=== PATIENT | male | born 1950 | race Caucasian/White ===

== ENCOUNTER 2018-03-23 07:02 | Emergency (ER) | payer MEDICARE, BC ==
--- OUTSIDE RECORDS SUMMARY | 2018-03-23 07:16 | XMS REPORT ---
:1950 External Reference #:[id number] Author Organization [facility] 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 Unavailable Sade Storey MD Primary Care Physician Unavailable Payers Type Date Identification Numbers Payment Provider Subscriber Medicare Primary Policy Number: [id number] Medicare Dennis Maya PayID: [id number] [address] [place] [address] Medigap Part B Policy Number: [id number] Mimi Maya PayID: [id number] [address] [address] [place] [address] Medigap Part B Expires: 2011 Policy Number: Mimi Maya [id number] PayID: [id number] [place] [address] Problems Date Description Provider Status Onset: 08/03/2015 Benign essential hypertension Sade Storey MD Active Onset: 08/03/2015 Hyperlipidemia Sade Storey MD Active Onset: 08/03/2015 Benign prostatic hypertrophy without Sade Storey MD Active outflow obstruction Onset: 08/03/2015 Plantar fascial fibromatosis Sade Storey MD Active Onset: 08/03/2015 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 Onset: 08/03/2015 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 Active outflow obstruction Onset: 12/31/2017 Screening for malignant neoplasm of Vira Conteh M.D. Active prostate Onset: 09/23/2017 Allergic rhinitis Sade Storey MD Active Onset: 09/23/2017 Abnormal glucose level Sade Storey MD Active Onset: 11/22/2016 Cough Rajinder Bañuelos M.D. Active Onset: 11/22/2016 Dysphagia Rajinder Bañuelos M.D. 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 hours as needed for pain [facility] Fluticasone 09/23/ Active Suspension 50mcg/Act 29.7m 2 sprays [place] Proprionate 2018 l in in the , Nasal [place] morning Clint, in each M.D. nostril in the morning id# [id number] 50mcg (50 sprays per container ) #9 container s/ Gabapentin 10/11/ Active Capsules 300mg 270ca take 1 G62.9 Sarmad 2015 ps capsule 3 Andras, times a M.D. day Dutasteride 08/02/ Active Capsules 0.5mg 90cap 1 tab by Rupa Storey MD daily Omeprazole 08/02/ Active Capsules DR 40mg 90cap 1 by Rupa Storey MD every day Doxazosin 08/02/ Active Tablets 2mg 90tab 1 tab by Barrett Storey 2015 mp Stuart MD daily Nitrostat 08/02/ Active Tablets Sub 0.4mg 25tab 1 tab sl [place], 2015 s every 5 MD Sade min x3 chest pain Metrogel 08/02/ Active Gel 1% 60gm apply to [place], 2015 affected MD Sade every night at bedtime prn Losartan / Active Tablets 50mg 90tab 1 tab by [place] Potassium 0000 s mouth MD Sade every day Aspirin Ec Low / Active Tablets DR 81mg 1 by Unknown Dose 0000 mouth every day Simvastatin / Active Tablets 40mg 90tab 1 by [place], 0000 s mouth MD Sade every day Montelukast / Active Tablets 10mg 90tab 1 by Sarmad Sodium 0000 s mouth Andras, every day M.D. as needed Ketoconazole / Active Cream 2% apply Unknown 0000 twice a day as needed. Ciprofloxacin / Active Tablets 500mg 1 by Unknown HCL 0000 mouth twice a day Colace / Active Capsules 100mg 1 po bid Unknown 0000 Oxybutynin 02/21/ Hx Tablets ER 5mg 30tab 1 by Yady Chloride ER 2018 - 24HR s mouth Mahmoud, 02/24/ every day M.D. 2017 Ciprofloxacin 01/10/ Hx Tablets 500mg 1tabs 1 by Yady, HCL 2018 - mouth 1 x Mahmoud, 01/11/ dose M.D. 2018 Vitamin D3 08/02/ Hx Tablets 2000Unit 1 by [place] Super Strength 2015 - mouth MD Sade 10/10/ every day 2017 Multi-Day 08/02/ Hx Tablets 100ta 1 by [place] Vitamins 2015 - bs mouth MD Sade 09/23/ every day 2018 Gabapentin / Hx Capsules 300mg 84cap 1 by G62.9 [place], 0000 - s mouth Leydi, 11/15/ three M.D. 2016 times a day as needed Immunizations CPT Code Status Date Vaccine Lot # [id number] Given 02/24/2018 Influenza High Dose [id number] Given 02/21/2017 Influenza High Dose [id number] 41239 Given 04/06/2016 Pneumovax Injection [id number] Given 02/17/2016 Influenza Vaccine (Fluzone) Age 3 And Older [id number] 62217 Given 05/20/2014 Pneumococcal Conjugate Vaccine 13 Valent For Intramuscular Use 28761 Given 03/14/1998 Influenza Virus Vaccine Vital Signs Date Vital Result Comment 02/24/2018 BP Systolic 128 mmHg BP Diastolic 75 mmHg Body Temperature 98.2 F Heart Rate 87 /min Respiratory Rate 16 /min Height 67 inches 5'7" Weight 148.12 lb BMI (Body Mass Index) 23.2 kg/m2 BSA (Body Surface Area) 1.78 m2 [place] body weight in kilograms 67 O2 % BldC Oximetry 98 % Pain Level 0 02/21/2018 BP Systolic 113 mmHg BP Diastolic 69 mmHg Body Temperature 98.5 F Heart Rate 99 /min Respiratory Rate 15 /min O2 % BldC Oximetry 98 % Pain Level 10 Pain while urinating 01/10/2018 BP Systolic 142 mmHg BP Diastolic 84 mmHg Body Temperature 98.1 F Heart Rate 75 /min Respiratory Rate 18 /min Height 67 inches 5'7" Weight 150.00 lb BMI (Body Mass Index) 23.5 kg/m2 BSA (Body Surface Area) 1.79 m2 [place] body weight in kilograms 67 O2 % BldC Oximetry 99 % Pain Level 0 12/31/2017 BP Systolic 131 mmHg BP Diastolic 81 mmHg Body Temperature 98.2 F Heart Rate 72 /min Respiratory Rate 16 /min Height 67 inches 5'7" Weight 152.00 lb BMI (Body Mass Index) 23.8 kg/m2 BSA (Body Surface Area) 1.80 m2 [place] body weight in kilograms 67 O2 % BldC Oximetry 99 % Pain Level 0 09/23/2017 BP Systolic Sitting Left Arm 98 mmHg Yuliana 97/60 BP Diastolic Sitting Left Arm 67 mmHg Yuliana 97/60 Heart Rate 81 /min Respiratory Rate 12 /min Height 67 inches 5'7" Weight 157.00 lb BMI (Body Mass Index) 24.6 kg/m2 BSA (Body Surface Area) 1.82 m2 [place] body weight in kilograms 67 03/27/2017 BP Systolic 117 mmHg BP Diastolic 73 mmHg Heart Rate 71 /min Respiratory Rate 12 /min Height 67 inches 5'7" Weight 154.25 lb BMI (Body Mass Index) 24.2 kg/m2 BSA (Body Surface Area) 1.81 m2 [place] body weight in kilograms 67 O2 % BldC Oximetry 97 % 11/22/2016 BP Systolic Sitting Left Arm 128 mmHg BP Diastolic Sitting Left Arm 72 mmHg Body Temperature 98.0 F Heart Rate 76 /min Respiratory Rate 14 /min Height 67 inches 5'7" Weight 152.38 lb BMI (Body Mass Index) 23.9 kg/m2 BSA (Body Surface Area) 1.80 m2 [place] body weight in kilograms 67 O2 % BldC Oximetry 98 % 10/10/2016 BP Systolic 121 mmHg BP Diastolic 71 mmHg Heart Rate 70 /min Respiratory Rate 12 /min Height 67 inches 5'7" Weight 153.00 lb With Shoes BMI (Body Mass Index) 24.0 kg/m2 BSA (Body Surface Area) 1.80 m2 [place] body weight in kilograms 67 O2 % BldC Oximetry 98 % 04/06/2016 BP Systolic 118 mmHg BP Diastolic 74 mmHg Heart Rate 78 /min Height 67 inches 5'7" Weight 151.00 lb BMI (Body Mass Index) 23.6 kg/m2 BSA (Body Surface Area) 1.79 m2 11/02/2015 BP Systolic Sitting Right Arm 118 mmHg BP Diastolic Sitting Right Arm 64 mmHg Heart Rate 72 /min Height 67 inches 5'7" Weight 159.12 lb BMI (Body Mass Index) 24.9 kg/m2 BSA (Body Surface Area) 1.84 m2 10/12/2015 BP Systolic 122 mmHg BP Diastolic 66 mmHg Heart Rate 76 /min Respiratory Rate 18 /min Height 67 inches 5'7" Weight 158.00 lb BMI (Body Mass Index) 24.7 kg/m2 BSA (Body Surface Area) 1.83 m2 O2 % BldC Oximetry 98 % ra 09/07/2015 BP Systolic 132 mmHg BP Diastolic 72 mmHg Heart Rate 72 /min Respiratory Rate 18 /min Height 67 inches 5'7" Weight 154.00 lb BMI (Body Mass Index) 24.1 kg/m2 BSA (Body Surface Area) 1.81 m2 O2 % BldC Oximetry 97 % Ra 08/03/2015 BP Systolic 122 mmHg BP Diastolic 77 mmHg Heart Rate 89 /min Weight 153.00 lb Results Test Date Test Result H/L Range Note CBC W/Automated Diff 02/20/2018 White Blood Count 7.5 K/uL 3.4-10.5 1 Red Blood Count 3.99 M/uL Low 4.20-5.80 1 Hemoglobin 12.2 gm/dL Low 12.8-17.0 1 Hematocrit 34.9 % Low 38.0-48.0 1 Mean Cell Volume 87.5 fl 80.0-96.0 1 Mean Corpuscular HGB 30.6 pg 27.0-33.0 1 Mean Corpuscular HGB Conc 35.0 g/dL 31.7-36.0 1 Platelet Count 159 K/uL 155-360 1 Red Cell Distri Width SD 39.1 fl 36-51 1 Red Cell Distri Width %CV 12.8 % 11.6-15.8 1 Mean Platelet Volume 11.8 fL High 6.6-10.6 1 Neut% 75.2 % High 33.0-73.0 1 Lymph % 17.4 % Low 20.0-42.0 1 [place] % 6.6 % 0.0-10.0 1 Eo% 0.7 % 0.0-6.6 1 Bas% 0.1 % 0.0-1.1 1 Neut# 5.66 K/uL 1.8-7.0 1 Lymph # 1.31 K/uL 1.0-4.0 1 [place] # 0.50 K/uL 0.0-0.8 1 Eos # 0.05 K/uL 0.0-0.5 1 Baso # 0.01 K/uL 0.0-0.1 1 Basic Metabolic Panel 02/20/2018 Glucose 94 mg/dL 74-106 1 BUN 11 mg/dL 7-18 1 Creatinine 1.0 mg/dL 0.6-1.3 1 Glom Filtration Rate, Estimate >60 mL/min >60 1 If >60 mL/min >60 1, 2 BUN/Creat 11.0 ratio 1 Sodium 143 mmol/L 136-145 1 Potassium 4.1 mmol/L 3.5-5.1 1 Chloride 108 mmol/L High 98-107 1 Carbon Dioxide 30 mmol/L 21-32 1 Anion Gap 5 mEq/L Low 8-16 1 Calcium 8.1 mg/dL Low 8.5-10.1 1 Laboratory test finding 12/31/2017 Prostate Specific 3.93 ng/mL < 4.0 3 , 4 Antigen Comprehensive Metabolic 09/18/2017 Glucose 104 mg/dL 74-106 5 Panel BUN 13 mg/dL 7-18 5 Creatinine 1.0 mg/dL 0.6-1.3 5 Glom Filtration Rate, Estimate >60 mL/min >60 5 If >60 mL/min >60 5, 6 BUN/Creat 13.0 ratio 5 Sodium 144 mmol/L 136-145 5 Potassium 3.9 mmol/L 3.5-5.1 5 Chloride 111 mmol/L High 98-107 5 Carbon Dioxide 28 mmol/L 21-32 5 Anion Gap 5 mEq/L Low 8-16 5 Calcium 8.3 mg/dL Low 8.5-10.1 5 Total Protein 6.6 g/dL 6.4-8.2 5 Albumin 3.4 g/dL 3.4-5.0 5 Globulin 3.2 g/dL 1.9-4.3 5 Alb/Glob 1.1 ratio 5 Bilirubin,Total 0.4 mg/dL 0.2-1.0 5 Sgot/Ast 19 U/L 15-37 5 SGPT/Alt 35 U/L 12-78 5 Alkaline Phosphatase 90 U/L 45-117 5 LDL Cholesterol Profile 09/18/2017 Cholesterol 139 mg/dL <200 5, 7 Triglycerides 151 mg/dL High <150 5, 8 HDL Cholesterol 43 mg/dL >40 5, 9 LDL-Cholesterol 66 mg/dL < 100 5, 10 Glycohemoglobin A1c 09/18/2017 Glycohemoglobin (A1c) 6.2 % 4.2-6.3 5, 11 eAG 131 mg/dL 5 CBS W/Automated Diff 09/18/2017 White Blood Count 5.4 K/uL 3.4-10.5 5 Red Blood Count 5.00 M/uL 4.20-5.80 5 Hemoglobin 15.2 gm/dL 12.8-17.0 5 Hematocrit 43.5 % 38.0-48.0 5 Mean Cell Volume 87.0 fl 80.0-96.0 5 Mean Corpuscular HGB 30.4 pg 27.0-33.0 5 Mean Corpuscular HGB Conc 34.9 g/dL 31.7-36.0 5 Platelet Count 179 K/uL 155-360 5 Red Cell Distri Width SD 42.3 fl 36-51 5 Red Cell Distri Width %CV 13.8 % 11.6-15.8 5 Mean Platelet Volume 11.7 fL High 6.6-10.6 5 Neut% 57.6 % 33.0-73.0 5 Lymph % 31.5 % 20.0-42.0 5 [place] % 8.3 % 0.0-10.0 5 Eo% 2.0 % 0.0-6.6 5 Bas% 0.6 % 0.0-1.1 5 Neut# 3.12 K/uL 1.8-7.0 5 Lymph # 1.71 K/uL 1.0-4.0 5 [place] # 0.45 K/uL 0.0-0.8 5 Eos # 0.11 K/uL 0.0-0.5 5 Baso # 0.03 K/uL 0.0-0.1 5 Comprehensive Metabolic Panel 03/20/2017 Glucose 93 mg/dL 74-106 12 BUN 11 mg/dL 7-18 12 Creatinine 1.0 mg/dL 0.6-1.3 12 Glom Filtration Rate, Estimate >60 mL/min >60 12 If >60 mL/min >60 12, 13 BUN/Creat 11.0 ratio 12 Sodium 143 mmol/L 136-145 12 Potassium 4.3 mmol/L 3.5-5.1 12 Chloride 108 mmol/L High 98-107 12 Carbon Dioxide 30 mmol/L 21-32 12 Anion Gap 5 mEq/L Low 8-16 12 Calcium 8.8 mg/dL 8.5-10.1 12 Total Protein 7.0 g/dL 6.4-8.2 12 Albumin 3.7 g/dL 3.4-5.0 12 Globulin 3.3 g/dL 1.9-4.3 12 Alb/Glob 1.1 ratio 12 Bilirubin,Total 0.4 mg/dL 0.2-1.0 12 Sgot/Ast 21 U/L 15-37 12 SGPT/Alt 35 U/L 12-78 12 Alkaline Phosphatase 102 U/L 45-117 12 LDL Cholesterol Profile 03/20/2017 Cholesterol 170 mg/dL <200 12, 14 Triglycerides 167 mg/dL High <150 12, 15 HDL Cholesterol 44 mg/dL >40 12, 16 LDL-Cholesterol 93 mg/dL < 100 12, 17 Glycohemoglobin A1c 03/20/2017 Glycohemoglobin (A1c) 5.9 % 4.2-6.3 12, 18 eAG 123 mg/dL 12 CBS W/Automated Diff 11/22/2016 White Blood Count 5.8 K/uL 3.4-10.5 19 Red Blood Count 4.92 M/uL 4.20-5.80 19 Hemoglobin 14.9 gm/dL 12.8-17.0 19 Hematocrit 42.5 % 38.0-48.0 19 Mean Cell Volume 86.4 fl 80.0-96.0 19 Mean Corpuscular HGB 30.3 pg 27.0-33.0 19 Mean Corpuscular HGB Conc 35.1 g/dL 31.7-36.0 19 Platelet Count 202 K/uL 150-400 19 Red Cell Distri Width SD 41.5 fl 36-51 19 Red Cell Distri Width %CV 13.7 % 11.6-15.8 19 Mean Platelet Volume 12.5 fL High 6.6-10.6 19 Neut% 78.7 % High 33.0-73.0 19 Lymph % 14.0 % Low 20.0-42.0 19 [place] % 6.5 % 0.0-10.0 19 Eo% 0.5 % 0.0-6.6 19 Bas% 0.3 % 0.0-1.1 19 Neut# 4.59 K/uL 1.8-7.0 19 Lymph # 0.82 K/uL Low 1.0-4.0 19 [place] # 0.38 K/uL 0.0-0.8 19 Eos # 0.03 K/uL 0.0-0.5 19 Baso # 0.02 K/uL 0.0-0.1 19 Laboratory test 11/22/2016 [place] Screen NEGATIVE Negative 19, 20 finding (Heterophile) CBS W/Automated Diff 10/03/2016 White Blood Count 5.2 K/uL 3.4-10.5 21 Red Blood Count 5.03 M/uL 4.20-5.80 21 Hemoglobin 14.9 gm/dL 12.8-17.0 21 Hematocrit 42.5 % 38.0-48.0 21 Mean Cell Volume 84.5 fl 80.0-96.0 21 Mean Corpuscular HGB 29.6 pg 27.0-33.0 21 Mean Corpuscular HGB Conc 35.1 g/dL 31.7-36.0 21 Platelet Count 164 K/uL 150-400 21 Red Cell Distri Width SD 40.6 fl 36-51 21 Red Cell Distri Width %CV 13.5 % 11.6-15.8 21 Mean Platelet Volume 11.7 fL High 6.6-10.6 21 Neut% 69.4 % 33.0-73.0 21 Lymph % 22.5 % 20.0-42.0 21 [place] % 6.3 % 0.0-10.0 21 Eo% 1.2 % 0.0-6.6 21 Bas% 0.6 % 0.0-1.1 21 Neut# 3.62 K/uL 1.8-7.0 21 Lymph # 1.17 K/uL 1.0-4.0 21 [place] # 0.33 K/uL 0.0-0.8 21 Eos # 0.06 K/uL 0.0-0.5 21 Baso # 0.03 K/uL 0.0-0.1 21 LDL Cholesterol Profile 10/03/2016 Cholesterol 134 mg/dL <200 21, 22 Triglycerides 114 mg/dL <150 21, 23 HDL Cholesterol 36 mg/dL Low >40 21, 24 LDL-Cholesterol 75 mg/dL < 100 21, 25 Glycohemoglobin A1c 10/03/2016 Glycohemoglobin (A1c) 5.9 % 4.2-6.3 21, 26 eAG 123 mg/dL 21 Comprehensive Metabolic Panel 10/03/2016 Glucose 103 mg/dL 74-106 21 BUN 12 mg/dL 7-18 21 Creatinine 1.1 mg/dL 0.6-1.3 21 Glom Filtration Rate, Estimate >60 mL/min >60 21 If >60 mL/min >60 21, 27 BUN/Creat 10.9 ratio 21 Sodium 146 mmol/L High 136-145 21 Potassium 4.0 mmol/L 3.5-5.1 21 Chloride 109 mmol/L High 98-107 21 Carbon Dioxide 33 mmol/L High 21-32 21 Anion Gap 4 mEq/L Low 8-16 21 Calcium 8.5 mg/dL 8.5-10.1 21 Total Protein 6.5 g/dL 6.4-8.2 21 Albumin 3.5 g/dL 3.4-5.0 21 Globulin 3.0 g/dL 1.9-4.3 21 Alb/Glob 1.2 ratio 21 Bilirubin,Total 0.4 mg/dL 0.2-1.0 21 Sgot/Ast 19 U/L 15-37 21 SGPT/Alt 36 U/L 12-78 21 Alkaline Phosphatase 83 U/L 45-117 21 Comprehensive Metabolic Panel 03/30/2016 Glucose 108 mg/dL High 74-106 28 BUN 10 mg/dL 7-18 28 Creatinine 1.1 mg/dL 0.6-1.3 28 Glom Filtration Rate, Estimate >60 mL/min >60 28 If >60 mL/min >60 28, 29 BUN/Creat 9.0 ratio 28 Sodium 142 mmol/L 136-145 28 Potassium 4.0 mmol/L 3.5-5.1 28 Chloride 106 mmol/L 98-107 28 Carbon Dioxide 32 mmol/L 21-32 28 Anion Gap 4 mEq/L Low 8-16 28 Calcium 8.6 mg/dL 8.5-10.1 28 Total Protein 7.0 g/dL 6.4-8.2 28 Albumin 3.7 g/dL 3.4-5.0 28 Globulin 3.3 g/dL 1.9-4.3 28 Alb/Glob 1.1 ratio 28 Bilirubin,Total 0.5 mg/dL 0.2-1.0 28 Sgot/Ast 16 U/L 15-37 28 SGPT/Alt 35 U/L 12-78 28 Alkaline Phosphatase 94 U/L 45-117 28 CBC W/Automated Diff 03/30/2016 White Blood Count 6.1 K/uL 3.4-10.5 28 Red Blood Count 5.09 M/uL 4.20-5.80 28 Hemoglobin 15.5 gm/dL 12.8-17.0 28 Hematocrit 44.5 % 38.0-48.0 28 Mean Cell Volume 87.4 fl 80.0-96.0 28 Mean Corpuscular HGB 30.5 pg 27.0-33.0 28 Mean Corpuscular HGB Conc 34.8 g/dL 31.7-36.0 28 Platelet Count 172 K/uL 150-400 28 Red Cell Distri Width SD 41.5 fl 36-51 28 Red Cell Distri Width %CV 13.2 % 11.6-15.8 28 Mean Platelet Volume 11.4 fL High 6.6-10.6 28 Neut% 71.9 % 33.0-73.0 28 Lymph % 19.9 % 17.0-56.0 28 [place] % 6.2 % 0.0-10.0 28 Eo% 1.5 % 0.0-5.0 28 Bas% 0.5 % 0.1-1.0 28 Neut# 4.38 K/uL 1.8-7.0 28 Lymph # 1.21 K/uL Low 1.8-7.0 28 [place] # 0.38 K/uL 0.0-0.8 28 Eos # 0.09 K/uL 0.0-0.5 28 Baso # 0.03 K/uL Low 0.1-0.2 28 LDL Cholesterol Profile 03/30/2016 Cholesterol 159 mg/dL <200 28, 30 Triglycerides 140 mg/dL <150 28, 31 HDL Cholesterol 52 mg/dL >40 28, 32 LDL-Cholesterol 79 mg/dL < 100 28, 33 Glycohemoglobin A1c 03/30/2016 Glycohemoglobin (A1c) 5.9 % 4.2-6.3 28, 34 eAG 123 mg/dL 28 Laboratory test 03/30/2016 Vitamin D,25-Hydroxy 37.6 ng/mL 30.0-100.0 28 , 35 finding Comprehensive 08/04/2015 Glucose 94 mg/dL 74-106 Metabolic Panel BUN 14 mg/dL 7-18 Creatinine 1.1 mg/dL 0.6-1.3 Glom Filtration Rate, Estimate >60 mL/min >60 If >60 mL/min >60 36 BUN/Creat 12.7 ratio Sodium 141 mmol/L 136-145 Potassium 3.8 mmol/L 3.5-5.1 Chloride 106 mmol/L 98-107 Carbon Dioxide 30 mmol/L 21-32 Anion Gap 5 mEq/L Low 8-16 Calcium 8.3 mg/dL Low 8.5-10.1 Total Protein 6.8 g/dL 6.4-8.2 Albumin 3.6 g/dL 3.4-5.0 Globulin 3.2 g/dL 1.9-4.3 Alb/Glob 1.1 ratio Bilirubin,Total 0.6 mg/dL 0.2-1.0 Sgot/Ast 23 U/L 15-37 SGPT/Alt 51 U/L 12-78 Alkaline Phosphatase 85 U/L 45-117 CBC W/Automated Diff 08/04/2015 White Blood Count 5.4 K/uL 3.4-10.5 Red Blood Count 5.12 M/uL 4.20-5.80 Hemoglobin 15.6 gm/dL 12.8-17.0 Hematocrit 44.0 % 38.0-48.0 Mean Cell Volume 85.9 fl 80.0-96.0 Mean Corpuscular HGB 30.5 pg 27.0-33.0 Mean Corpuscular HGB Conc 35.5 g/dL 31.7-36.0 Platelet Count 196 K/uL 150-400 Red Cell Distri Width SD 40.8 fl 36-51 Red Cell Distri Width %CV 13.5 % 11.6-15.8 Mean Platelet Volume 12.0 fL High 6.6-10.6 Neut% 70.6 % 33.0-73.0 Lymph % 21.8 % 17.0-56.0 [place] % 6.1 % 0.0-10.0 Eo% 0.9 % 0.0-5.0 Bas% 0.6 % 0.1-1.0 Neut# 3.79 K/uL 1.8-7.0 Lymph # 1.17 K/uL Low 1.8-7.0 [place] # 0.33 K/uL 0.0-0.8 Eos # 0.05 K/uL 0.0-0.5 Baso # 0.03 K/uL Low 0.1-0.2 LDL Cholesterol Profile 08/04/2015 Cholesterol 157 mg/dL <200 37 Triglycerides 155 mg/dL High <150 38 HDL Cholesterol 38 mg/dL Low >40 39 LDL-Cholesterol 88 mg/dL < 100 40 Vitamin B12 And Folate 08/04/2015 Vitamin B12 697 pg/mL 193-986 Folic Acid 26.7 ng/mL High 3.1-17.5 Laboratory test finding 08/04/2015 Vitamin D,25-Hydroxy 36.6 ng/mL 30.0- 100.0 41 Glycohemoglobin A1c 08/04/2015 Glycohemoglobin (A1c) 5.6 % 4.2-6.3 42 eAG 114 mg/dL 1 CONSULT 02/14/18 10;30 2 Note: Persistent reduction for 3 months or more in an eGFR <60 mL/min/1.73 m2 defines CKD. Patients with eGFR values >/=60 mL/min/1.73 m2 may also have CKD if evidence of persistent proteinuria is present. The original MDRD equation for estimated GFR is not valid for patients less than 18 years of age. Additional information may be found at www.kdoqi.org. 3 Z12.5 4 THIS ASSAY IS NOT INTENDED A CANCER SCREENING TEST The concentration of PSA in a given specimen, determined with assays from different manufacturers, can vary due to differences in assay methods and reagent specificity. Values obtained from different assay methods cannot be used interchangeably. Method: Siemens [employer] [place] Chemiluminescent immunoassay. 5 E78.5,R73.9,I10 6 Note: Persistent reduction for 3 months or more in an eGFR <60 mL/min/1.73 m2 defines CKD. Patients with eGFR values >/=60 mL/min/1.73 m2 may also have CKD if evidence of persistent proteinuria is present. The original MDRD equation for estimated GFR is not valid for patients less than 18 years of age. Additional information may be found at www.[email or web address]. 7 Reference Guidelines*: Desirable: ........... < 200 mg/dL Borderline High: ..... 200-239 mg/dL High: ................ >=240 mg/dL * The National Cholesterol Education Program (NCEP) 8 Reference Guidelines*: Normal: ............. < 150 mg/dL Borderline High: .... 150-199 mg/dL High: ............... 200-499 mg/dL Very High: .......... > 500 mg/dL * Source: National Cholesterol Education Program (NCEP) 9 Reference Guidelines*: Low HDL: ..... < 40 mg/dL Normal: ..... 40-60 mg/dL Desirable: ... > 60 mg/dL *The National Cholesterol Education Program(NCEP) 10 Reference Guidelines*: Optimal:........... <100 mg/dL Near Optimal....... 100-129 mg/dL Borderline High.... 130-159 mg/dL High............... 160-189 mg/dL Very High.......... >=190 mg/dL * Source: National Cholesterol Education Program (NCEP) 11 Elevated levels of HbA1c suggest the need for more aggressive treatment of glycemia. The [place] [employer] recommends that a primary goal of therapy should be a HbA1c of <7% and that physicians should re-evaluate the treatment regimen in patients with HbA1c values consistently >8%. 12 E78.5, E73.9 13 Note: Persistent reduction for 3 months or more in an eGFR <60 mL/min/1.73 m2 defines CKD. Patients with eGFR values >/=60 mL/min/1.73 m2 may also have CKD if evidence of persistent proteinuria is present. The original MDRD equation for estimated GFR is not valid for patients less than 18 years of age. Additional information may be found at www.kdoqi.org. 14 Reference Guidelines*: Desirable: ........... < 200 mg/dL Borderline High: ..... 200-239 mg/dL High: ................ >=240 mg/dL * The National Cholesterol Education Program (NCEP) 15 Reference Guidelines*: Normal: ............. < 150 mg/dL Borderline High: .... 150-199 mg/dL High: ............... 200-499 mg/dL Very High: .......... > 500 mg/dL * Source: National Cholesterol Education Program (NCEP) 16 Reference Guidelines*: Low HDL: ..... < 40 mg/dL Normal: ..... 40-60 mg/dL Desirable: ... > 60 mg/dL *The National Cholesterol Education Program(NCEP) 17 Reference Guidelines*: Optimal:........... <100 mg/dL Near Optimal....... 100-129 mg/dL Borderline High.... 130-159 mg/dL High............... 160-189 mg/dL Very High.......... >=190 mg/dL * Source: National Cholesterol Education Program (NCEP) 18 Elevated levels of HbA1c suggest the need for more aggressive treatment of glycemia. The [place] [employer] recommends that a primary goal of therapy should be a HbA1c of <7% and that physicians should re-evaluate the treatment regimen in patients with HbA1c values consistently >8%. 19 R13.10 20 METHOD: [place] II Rapid Immunochromatographic assay [facility] 21 E78.5,G62.9 22 Reference Guidelines*: Desirable: ........... < 200 mg/dL Borderline High: ..... 200-239 mg/dL High: ................ >=240 mg/dL * The National Cholesterol Education Program (NCEP) 23 Reference Guidelines*: Normal: ............. < 150 mg/dL Borderline High: .... 150-199 mg/dL High: ............... 200-499 mg/dL Very High: .......... > 500 mg/dL * Source: National Cholesterol Education Program (NCEP) 24 Reference Guidelines*: Low HDL: ..... < 40 mg/dL Normal: ..... 40-60 mg/dL Desirable: ... > 60 mg/dL *The National Cholesterol Education Program(NCEP) 25 Reference Guidelines*: Optimal:........... <100 mg/dL Near Optimal....... 100-129 mg/dL Borderline High.... 130-159 mg/dL High............... 160-189 mg/dL Very High.......... >=190 mg/dL * Source: National Cholesterol Education Program (NCEP) 26 Elevated levels of HbA1c suggest the need for more aggressive treatment of glycemia. The [place] [employer] recommends that a primary goal of therapy should be a HbA1c of <7% and that physicians should re-evaluate the treatment regimen in patients with HbA1c values consistently >8%. 27 Note: Persistent reduction for 3 months or more in an eGFR <60 mL/min/1.73 m2 defines CKD. Patients with eGFR values >/=60 mL/min/1.73 m2 may also have CKD if evidence of persistent proteinuria is present. The original MDRD equation for estimated GFR is not valid for patients less than 18 years of age. Additional information may be found at www.[email or web address]. 28 I25.10 E78.5 I10 M67.949 29 Note: Persistent reduction for 3 months or more in an eGFR <60 mL/min/1.73 m2 defines CKD. Patients with eGFR values >/=60 mL/min/1.73 m2 may also have CKD if evidence of persistent proteinuria is present. The original MDRD equation for estimated GFR is not valid for patients less than 18 years of age. Additional information may be found at [email or web address]. 30 Reference Guidelines*: Desirable: ........... < 200 mg/dL Borderline High: ..... 200-239 mg/dL High: ................ >=240 mg/dL * The National Cholesterol Education Program (NCEP) 31 Reference Guidelines*: Normal: ............. < 150 mg/dL Borderline High: .... 150-199 mg/dL High: ............... 200-499 mg/dL Very High: .......... > 500 mg/dL * Source: National Cholesterol Education Program (NCEP) 32 Reference Guidelines*: Low HDL: ..... < 40 mg/dL Normal: ..... 40-60 mg/dL Desirable: ... > 60 mg/dL *The National Cholesterol Education Program(NCEP) 33 Reference Guidelines*: Optimal:........... <100 mg/dL Near Optimal....... 100-129 mg/dL Borderline High.... 130-159 mg/dL High............... 160-189 mg/dL Very High.......... >=190 mg/dL * Source: National Cholesterol Education Program (NCEP) 34 Elevated levels of HbA1c suggest the need for more aggressive treatment of glycemia. The [place] Diabetes Association recommends that a primary goal of therapy should be a HbA1c of <7% and that physicians should re-evaluate the treatment regimen in patients with HbA1c values consistently >8%. 35 Vitamin D deficiency has been defined by the [place] of [employer] and an Endocrine Society practice guideline as a level of serum 25-OH vitamin D less than 20 ng/mL (1,2). The Endocrine Society went on to further define vitamin D insufficiency as a level between 21 and 29 ng/mL (2). 1. IOM ([place] of Medicine). 2010. Dietary reference intakes for calcium and D. [place]: The National Academies Press. 2. Francesco MF, Sera KRISHNAMURTHY, Usman BAPTISTE, et al. Evaluation, treatment, and prevention of vitamin D deficiency: an Endocrine Society clinical practice guideline. JCEM. 2010; 96(7):1911-30. Performed at: RN - [facility] [address] [id number] Real Estate Utilization Officer: Yessy Whitfield MD, Phone: [phone] Note: Persistent reduction for 3 months or more in an eGFR <60 mL/min/1.73 m2 defines CKD. Patients with eGFR values >/=60 mL/min/1.73 m2 may also have CKD if evidence of persistent proteinuria is present. The original MDRD equation for estimated GFR is not valid for patients less than 18 years of age. Additional information may be found at www.kdoqi.org. 37 Reference Guidelines*: Desirable: ........... < 200 mg/dL Borderline High: ..... 200-239 mg/dL High: ................ >=240 mg/dL * The National Cholesterol Education Program (NCEP) 38 Reference Guidelines*: Normal: ............. < 150 mg/dL Borderline High: .... 150-199 mg/dL High: ............... 200-499 mg/dL Very High: .......... > 500 mg/dL * Source: National Cholesterol Education Program (NCEP) 39 Reference Guidelines*: Low HDL: ..... < 40 mg/dL Normal: ..... 40-60 mg/dL Desirable: ... > 60 mg/dL *The National Cholesterol Education Program(NCEP) 40 Reference Guidelines*: Optimal:........... <100 mg/dL Near Optimal....... 100-129 mg/dL Borderline High.... 130-159 mg/dL High............... 160-189 mg/dL Very High.......... >=190 mg/dL * Source: National Cholesterol Education Program (NCEP) 41 Vitamin D deficiency has been defined by the [place] of [employer] and an Endocrine Society practice guideline as a level of serum 25-OH vitamin D less than 20 ng/mL (1,2). The Endocrine Society went on to further define vitamin D insufficiency as a level between 21 and 29 ng/mL (2). 1. IOM ([place] of [employer]). 2010. Dietary reference intakes for calcium and D. [place]: The National Academies Press. 2. Francesco MF, Sera NC, Usman BAPTISTE, et al. Evaluation, treatment, and prevention of vitamin D deficiency: an Endocrine Society clinical practice guideline. JCEM. 2010; 96(8):1911-30. Performed at: RN - [facility] [address] [id number] Real Estate Utilization Officer: Yessy Whitfield MD, Phone: [phone] Elevated levels of HbA1c suggest the need for more aggressive treatment of glycemia. The [place] Diabetes Association recommends that a primary goal of therapy should be a HbA1c of <7% and that physicians should re-evaluate the treatment regimen in patients with HbA1c values consistently >8%. Procedures Date CPT Code Description Status Comment 02/24/2018 78029 Irrigation Of Bladder Completed 02/21/2018 06708 Irrigation Of Bladder Completed 01/10/2018 36133 Cystoscopy Completed 12/27/[address] Horton performed colonoscopy due in 5 years 11/13/2007 50029 Stress Test Interpre And Completed Report Only 11/13/2007 35193 Stress Test Physician Super Completed Only 07/31/2007 50573 Stress Test Interpre And Completed Report Only 07/31/2007 38239 Stress Test Physician Super Completed Only Encounters Type Date Location Provider CPT E/M Dx Office Visit 02/21/2018 1:35p Urology Vira Conteh M.D. 97460 N40.1 Office Visit 01/10/2018 10:15a Urology Vira Conteh M.D. 94168 N40.1 Office Visit 12/31/2017 9:00a Urology Vira Conteh M.D. 74261 Z12.5 N40.1 Office Visit 09/23/2017 2:20p [place] [address] I10 E78.5 R73.9 J30.9 Office Visit 03/27/2017 10:00a [place] [address] E78.5 I10 R73.9 M67.949 Office Visit 11/22/2016 8:40a Primary Care Office Rajinder Bañuelos M.D. 13370 R13.10 R05 E78.5 I10 Office Visit 10/10/2016 9:40a [place] [address] I10 E78.5 R73.9 Office Visit 04/06/2016 9:20a [place] [address] E78.5 I25.10 I10 G62.9 N40.0 Z23 Office Visit 11/02/2015 8:40a [place] [address] I25.10 E78.5 I10 G62.9 N40.0 M67.949 Office Visit 10/12/2015 10:00a Physical Medicine & [place] [address] G62.9 Infectious Disease Office Visit 09/07/2015 10:30a Physical Medicine & [place] [address] G62.9 Infectious Disease Office Visit 08/03/2015 11:00a [place] [address] I25.10 I10 E78.5 N40.0 M72.2 M67.949 Plan of Care Future Appointment(s):03/11/2018 11:00 am - Vira Conteh M.D. at Vkfnixh6306/2018 10:20 am - Sade Storey MD at Primary Care Cydyxz7304/01/2018 10:00 am - Dari Zimmerman MS, [employer], CNM at Primary Care Ggdnxq9702/24/2018 - Vira Conteh M.D.N40.1 Benign prostatic hyperplasia with lower urinary tract sympComments:s/p TURP, Dietz was removed today and the patient was able to urinate the 120 cc that I irrigated the bladder with. Patient to follow-up with me in 2 weeks for uroflow and PVR.
--- OUTSIDE RECORDS SUMMARY | 2018-03-23 07:16 | XMS REPORT ---
:1950 External Reference #:[id number] Author Organization [facility] Address [address], [address] [place] [address] Phone [phone] Care Team Providers Name Role Phone Sade Storey MD Care Team Information Home Improvement Advisor Unavailable Sade Storey MD Primary Care Physician Unavailable Payers Type Date Identification Numbers Payment Provider Subscriber Medicare Primary Policy Number: [id number] Medicare Dennis Maya PayID: [id number] [address] [place] [address] Medigap Part B Policy Number: [id number] Mimi Maya PayID: [id number] [address] [address] [place] [address] Medigap Part B Expires: 2011 Policy Number: Mimi Maya [id number] PayID: [id number] [place] [address] Problems Date Description Provider Status Onset: 08/03/2015 Benign essential hypertension Sade Storey MD Active Onset: 08/03/2015 Hyperlipidemia Sade Storey MD Active Onset: 08/03/2015 Benign prostatic hypertrophy without Sade Storey MD Active outflow obstruction Onset: 08/03/2015 Plantar fascial fibromatosis Sade Storey MD Active Onset: 08/03/2015 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 Onset: 08/03/2015 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 [...] Lives With 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 Lortab 02/20/ Active Tablets 5-325mg 10tab 1 tab by Yady 2018 s mouth Mahmoud, every 4-6 M.D. hours as needed for pain [facility] Fluticasone 09/23/ Active Suspension 50mcg/Act 29.7m 2 sprays [place] Proprionate 2018 l in in the , Nasal [place] morning Clint, in each M.D. nostril in the morning id# [id number] 50mcg (50 sprays per container ) #9 container s/days Gabapentin 10/11/ Active Capsules 300mg 270ca take 1 G62.9 Sarmad 2015 ps capsule 3 Andras, times a M.D. day Dutasteride 08/02/ Active Capsules 0.5mg 90cap 1 tab by Rupa Storey s janna Stuart MD daily Omeprazole 08/02/ Active Capsules DR 40mg 90cap 1 by Rupa Storey s janna Stuart MD every day Doxazosin 08/02/ Active Tablets 2mg 90tab 1 tab by [place] Mesylate 2015 s mouth MD Sade daily Nitrostat 08/02/ Active Tablets Sub 0.4mg 25tab 1 tab sl [place], 2016 s every 5 MD Sade min x3 chest pain Metrogel 08/02/ Active Gel 1% 60gm apply to [place], 2016 affected MD Sade every night at bedtime prn Losartan / Active Tablets 50mg 90tab 1 tab by [place] Potassium s mouth MD Sade every day Aspirin Ec Low / Active Tablets DR 81mg 1 by Unknown Dose 0000 mouth every day Simvastatin / Active Tablets 40mg 90tab 1 by [place], 0000 s janna Stuart MD every day Montelukast / Active Tablets 10mg 90tab 1 by Sarmad Sodium 0000 s mouth Andras, every day M.D. as needed Ketoconazole / Active Cream 2% apply Unknown 0000 twice a day as needed. Ciprofloxacin / Active Tablets 500mg 1 by Unknown HCL 0000 mouth twice a day Ciprofloxacin 01/10/ Hx Tablets 500mg 1tabs 1 by Yady, HCL 2018 - mouth 1 x Mahmoud, 01/11/ dose M.D. 2018 Vitamin D3 08/02/ Hx Tablets 2000Unit 1 by [place] Super Strength 2015 - mouth MD Sade 10/10/ every day 2017 Multi-Day 08/02/ Hx Tablets 100ta 1 by [place] Vitamins 2015 - bs janna Stuart MD 09/23/ every day 2018 Gabapentin / Hx Capsules 300mg 84cap 1 by G62.9 [place], 0000 - s mouth Leydi, 11/15/ three M.D. 2016 times a day as needed Immunizations CPT Code Status Date Vaccine Lot # [id number] Given 02/21/2017 Influenza High Dose [id number] Given 04/06/2016 Pneumovax Injection [id number] Given 02/17/2016 Influenza Vaccine (Fluzone) Age 3 And Older [id number] Given 03/14/1998 Influenza Virus Vaccine Vital Signs Date Vital Result Comment 02/21/2018 BP Systolic 113 mmHg BP Diastolic [...] kg/m2 BSA (Body Surface Area) 1.79 m2 [place] body weight in kilograms 67 O2 % BldC Oximetry 99 % Pain Level 0 12/31/2017 BP Systolic 131 mmHg BP Diastolic 81 mmHg Body Temperature 98.2 F Heart Rate 72 /min Respiratory Rate 16 /min Height 67 inches 5'7" Weight 152.00 lb BMI (Body Mass Index) 23.8 kg/m2 BSA (Body Surface Area) 1.80 m2 [place] body weight in kilograms 67 O2 % BldC Oximetry 99 % Pain Level 0 09/23/2017 BP Systolic Sitting Left Arm 98 mmHg Yuliana 97/60 BP Diastolic Sitting Left Arm 67 mmHg Yuliana 97/60 Heart Rate 81 /min Respiratory Rate 12 /min Height 67 inches 5'7" Weight 157.00 lb BMI (Body Mass Index) 24.6 kg/m2 BSA (Body Surface Area) 1.82 m2 [place] body weight in kilograms 67 03/27/2017 BP Systolic 117 mmHg BP Diastolic 73 mmHg Heart Rate 71 /min Respiratory Rate 12 /min Height 67 inches 5'7" Weight 154.25 lb BMI (Body Mass Index) 24.2 kg/m2 BSA (Body Surface Area) 1.81 m2 [place] body weight in kilograms 67 O2 % BldC Oximetry 97 % 11/22/2016 BP Systolic Sitting Left Arm 128 mmHg BP Diastolic Sitting Left Arm 72 mmHg Body Temperature 98.0 F Heart Rate 76 /min Respiratory Rate 14 /min Height 67 inches 5'7" Weight 152.38 lb BMI (Body Mass Index) 23.9 kg/m2 BSA (Body Surface Area) 1.80 m2 [place] body weight in kilograms 67 O2 % BldC Oximetry 98 % 10/10/2016 BP Systolic 121 mmHg BP Diastolic 71 mmHg Heart Rate 70 /min Respiratory Rate 12 /min Height 67 inches 5'7" Weight 153.00 lb With Shoes BMI (Body Mass Index) 24.0 kg/m2 BSA (Body Surface Area) 1.80 m2 [place] body weight in kilograms 67 O2 % [...] Lymph % 17.4 % Low 20.0-42.0 1 [place] % 6.6 % 0.0-10.0 1 Eo% 0.7 % 0.0-6.6 1 Bas% 0.1 % 0.0-1.1 1 Neut# 5.66 K/uL 1.8-7.0 1 Lymph # 1.31 K/uL 1.0-4.0 1 [place] # 0.50 K/uL 0.0-0.8 1 Eos # [...] 5 Lymph % 31.5 % 20.0-42.0 5 [place] % 8.3 % 0.0-10.0 5 Eo% 2.0 % 0.0-6.6 5 Bas% 0.6 % 0.0-1.1 5 Neut# 3.12 K/uL 1.8-7.0 5 Lymph # 1.71 K/uL 1.0-4.0 5 [place] # 0.45 K/uL 0.0-0.8 5 Eos # [...] Lymph % 14.0 % Low 20.0-42.0 19 [place] % 6.5 % 0.0-10.0 19 Eo% 0.5 % 0.0-6.6 19 Bas% 0.3 % 0.0-1.1 19 Neut# 4.59 K/uL 1.8-7.0 19 Lymph # 0.82 K/uL Low 1.0-4.0 19 [place] # 0.38 K/uL 0.0-0.8 19 Eos # 0.03 K/uL 0.0-0.5 19 Baso # 0.02 K/uL 0.0-0.1 19 Laboratory test 11/22/2016 [place] Screen NEGATIVE Negative 19, 20 finding (Heterophile) [...] 21 Lymph % 22.5 % 20.0-42.0 21 [place] % 6.3 % 0.0-10.0 21 Eo% 1.2 % 0.0-6.6 21 Bas% 0.6 % 0.0-1.1 21 Neut# 3.62 K/uL 1.8-7.0 21 Lymph # 1.17 K/uL 1.0-4.0 21 [place] # 0.33 K/uL 0.0-0.8 21 Eos # [...] 28 Lymph % 19.9 % 17.0-56.0 28 [place] % 6.2 % 0.0-10.0 28 Eo% 1.5 % 0.0-5.0 28 Bas% 0.5 % 0.1-1.0 28 Neut# 4.38 K/uL 1.8-7.0 28 Lymph # 1.21 K/uL Low 1.8-7.0 28 [place] # 0.38 K/uL 0.0-0.8 28 Eos # [...] % 33.0-73.0 Lymph % 21.8 % 17.0-56.0 [place] % 6.1 % 0.0-10.0 Eo% 0.9 % 0.0-5.0 Bas% 0.6 % 0.1-1.0 Neut# 3.79 K/uL 1.8-7.0 Lymph # 1.17 K/uL Low 1.8-7.0 [place] # 0.33 K/uL 0.0-0.8 Eos # 0.05 [...] methods cannot be used interchangeably. Method: Siemens ViralGains [place] Chemiluminescent immunoassay. 5 E78.5,R73.9,I10 6 Note: Persistent [...] for more aggressive treatment of glycemia. The [place] Diabetes Association recommends that a primary goal [...] for more aggressive treatment of glycemia. The [place] Diabetes Association recommends that a primary goal of therapy should be a HbA1c of <7% and that physicians should re-evaluate the treatment regimen in patients with HbA1c values consistently >8%. 19 R13.10 20 METHOD: [place] II Rapid Immunochromatographic assay [facility] 21 E78.5,G62.9 22 Reference Guidelines*: Desirable: ........... [...] for more aggressive treatment of glycemia. The [place] Diabetes Association recommends that a primary goal [...] for more aggressive treatment of glycemia. The [place] Diabetes Association recommends that a primary goal of therapy should be a HbA1c of <7% and that physicians should re-evaluate the treatment regimen in patients with HbA1c values consistently >8%. 35 Vitamin D deficiency has been defined by the [place] of Medicine and an Endocrine Society practice guideline as a level of serum 25-OH vitamin D less than 20 ng/mL (1,2). The Endocrine Society went on to further define vitamin D insufficiency as a level between 21 and 29 ng/mL (2). 1. IOM ([place] of Medicine). 2010. Dietary reference intakes for calcium and D. [place]: The National Academies Press. 2. Francesco MF, Sera NC, Usman BAPTISTE, et al. Evaluation, treatment, and prevention of vitamin D deficiency: an Endocrine Society clinical practice guideline. JCEM. 2010; 96(7):1911-30. Performed at: - [facility] [id number] Coal Passer: Yessy Whitfield MD, Phone: [phone] Note: Persistent reduction for 3 months [...] D deficiency has been defined by the [place] of Medicine and an Endocrine Society practice guideline as a level of serum 25-OH vitamin D less than 20 ng/mL (1,2). The Endocrine Society went on to further define vitamin D insufficiency as a level between 21 and 29 ng/mL (2). 1. IOM ([place] of Medicine). 2010. Dietary reference intakes for calcium and D. [place]: The National Academies Press. 2. Francesco MARIA, Sera NC, Usman BAPTISTE, et al. Evaluation, treatment, and prevention of vitamin D deficiency: an Endocrine Society clinical practice guideline. JCEM. 2010; 96(7):1911-30. Performed at: RN - [facility] [address] [id number] Coal Passer: Yessy Whitfield MD, Phone: [phone] Elevated levels of HbA1c suggest the need for more aggressive treatment of glycemia. The [place] Diabetes Association recommends that a primary goal of therapy should be a HbA1c of <7% and that physicians should re-evaluate the treatment regimen in patients with HbA1c values consistently >8%. Procedures Date CPT Code Description Status Comment 02/21/2018 95533 Irrigation Of Bladder Completed 01/10/2018 01474 Cystoscopy Completed 12/27/[address] Horton performed colonoscopy due in 5 years 11/13/2007 99551 Stress Test Interpre And Completed Report Only 11/13/2007 82719 Stress Test Physician Super Completed Only 07/31/2007 83495 Stress Test Interpre And Completed Report Only 07/31/2007 20936 Stress Test Physician Super Completed Only Encounters Type Date Location Provider CPT E/M Dx Office Visit 01/10/2018 10:15a Urology Vira Conteh M.D. 64235 N40.1 Office Visit 12/31/2017 9:00a Urology Vira Conteh M.D. 20937 Z12.5 N40.1 Office Visit 09/23/2017 2:20p [place] [address] I10 E78.5 R73.9 J30.9 Office Visit 03/27/2017 10:00a [place] [address] E78.5 I10 R73.9 M67.949 Office Visit 11/22/2016 8:40a Primary Care Office Rajinder Bañuelos M.D. 77670 R13.10 R05 E78.5 I10 Office Visit 10/10/2016 9:40a [place] [address] I10 E78.5 R73.9 Office Visit 04/06/2016 9:20a [place] [address] E78.5 I25.10 I10 G62.9 N40.0 Z23 Office Visit 11/02/2015 8:40a [place] [address] I25.10 E78.5 I10 G62.9 N40.0 M67.949 Office Visit 10/12/2015 10:00a Physical Medicine & [place] [address] G62.9 Infectious Disease Office Visit 09/07/2015 10:30a Physical Medicine [place] [address] G62.9 Infectious Disease Office Visit 08/03/2015 11:00a [place] [address] I25.10 I10 E78.5 N40.0 M72.2 M67.949 Plan of Care Future Appointment(s):09/18/2018 10:20 am - Sade Storey MD at Primary Care Wqdumt0004/01/2018 10:00 am - Dari Zimmerman MS, FACULTY RESEARCH ASSISTANT-C, CNM at Primary Care Wvsfjb4002/24/2018 3:30 pm - Nurse Internal Med at Primary Care Frgcmw7402/21/2018 - Vira Conteh M.D.N40.1 Benign prostatic hyperplasia with lower urinary tract sympComments:s/p TURP, Guevara was clogged with a clot, bladder was irrigated and cleared of clots, guevara draining well now. Cont with Guevara, plan for a trial to void in 3 days.
--- OUTSIDE RECORDS SUMMARY | 2018-03-23 07:16 | XMS REPORT ---
:1950 External Reference #:[id number] Author Organization [facility] Address [address], [address] [place] [address] Phone [phone] Care Team Providers Name Role Phone Sade Storey MD Care Team Information Ui Software Developer Unavailable Sade Storey MD Primary Care Physician Unavailable Payers Type Date Identification Numbers Payment Provider Subscriber Medicare Primary Policy Number: [id number] Medicare Dennis Maya PayID: [id number] [address] [place] [address] Medigap Part B Policy Number: [id number] Mimi Maya PayID: [id number] [address] [address] [place] [address] Medigap Part B Expires: 2011 Policy Number: Mimi Maya [id number] PayID: [id number] [address] [address] [place] [address] Problems Date Description Provider Status Onset: 08/03/2015 Benign essential hypertension Sade Storey MD Active Onset: 08/03/2015 Hyperlipidemia Sade Storey MD Active Onset: 08/03/2015 Benign prostatic hypertrophy without Sade Storey MD Active outflow obstruction Onset: 08/03/2015 Plantar fascial fibromatosis Sade Storey MD Active Onset: 08/03/2015 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 Onset: 08/03/2015 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7m 2 sprays [place] Proprionate 2018 l in in the , Nasal [place] morning Clint, in each M.D. nostril in the morning id# [id number] 50mcg (50 sprays per container ) #9 container s/days Gabapentin 10/11/ Active Capsules 300mg 270ca take 1 G62.9 Sarmad2015 ps capsule 3 Andras, times a M.D. day Dutasteride 08/02/ Active Capsules 0.5mg 90cap 1 tab by [place], 2015 s mouth MD Sade daily Omeprazole 08/02/ Active Capsules DR 40mg 90cap 1 by [place] 2015 s mouth MD Sade every day Doxazosin 08/02/ Active Tablets 2mg 90tab 1 tab by Barrett Storey 2015 s mouth MD Sade daily Nitrostat 08/02/ Active Tablets Sub 0.4mg 25tab 1 tab sl [place], 2015 s every 5 MD Sade min x3 chest pain Metrogel 08/02/ Active Gel 1% 60gm apply to [place], 2016 affected MD Sade every night at bedtime prn Losartan / Active Tablets 50mg 90tab 1 tab by [place] Potassium 0000 s janna Stuart MD every day Aspirin Ec Low / Active Tablets DR 81mg 1 by Unknown Dose 0000 mouth every day Simvastatin / Active Tablets 40mg 90tab 1 by [place] 0000 s janna Stuart MD every day Ketoconazole / Active Cream 2% apply Unknown 0000 twice a day as needed. Colace / Active Capsules 100mg 1 po bid Unknown 0000 Sulfamethoxazol 02/27/ Hx Tablets 800-160mg 14tab 1 by lisandro Conteh/Trimethoprim 2018 - s mouth Mahtacos, DS 03/11/ twice a M.D. 2017 day Uribel 02/27/ Hx Capsules 118mg 6caps 1 tab by Yady 2018 - mouth up Mahmoud, 03/11/ to four M.D. 2018 times a day Oxybutynin 02/21/ Hx Tablets ER 5mg 30tab 1 by Yady Chloride ER 2018 - 24HR s mouth Mahmoud, 02/24/ every day M.D. 2017 Lortab 02/20/ Hx Tablets 5-325mg 10tab 1 tab by Yady 2018 - s mouth Mahmoud, 03/11/ every 4-6 M.D. 2018 hours as needed for pain Ciprofloxacin 01/10/ Hx Tablets 500mg 1tabs 1 by Yady HCL 2018 - mouth 1 x Mahmoud, 01/11/ dose M.D. 2017 Vitamin D3 08/02/ Hx Tablets 2000Unit 1 by [place] Super Strength 2015 - janna Stuart MD 10/10/ every day 2017 Multi-Day 08/02/ Hx Tablets 100ta 1 by [place] Vitamins 2015 - bs janna Stuart MD 09/23/ every day 2018 Montelukast / Hx Tablets 10mg 90tab 1 by Nicole Bañuelos 0000 - s mouth Andras, 03/11/ every day M.D. 2018 as needed Gabapentin / Hx Capsules 300mg 84cap 1 by G62.9 Mezu, 0000 - s mouth Leydi, 11/15/ three M.D. 2016 times a day as needed Ciprofloxacin / Hx Tablets 500mg 1 by Unknown HCL 0000 - mouth 02/27/ twice a 2018 day Immunizations CPT Code Status Date Vaccine Lot # [id number] Given 02/24/2018 Influenza High Dose [id number] Given 02/24/2018 Influenza High Dose [id number] Given 02/21/2017 Influenza High Dose [id number] Given 04/06/2016 Pneumovax Injection [id number] Given 02/17/2016 Influenza Vaccine (Fluzone) Age 3 And Older [id number] 71073 Given 05/20/2014 Pneumococcal Conjugate Vaccine 13 Valent For Intramuscular Use [id number] Given 03/14/1998 Influenza Virus Vaccine Vital Signs Date Vital Result Comment 03/11/2018 BP Systolic 108 mmHg BP Diastolic 66 mmHg Body Temperature 97.9 F Heart Rate 76 /min Respiratory Rate 16 /min Height 67 inches 5'7" Weight 146.00 lb BMI (Body Mass Index) 22.9 kg/m2 BSA (Body Surface Area) 1.77 m2 [place] body weight in kilograms 67 O2 % BldC Oximetry 100 % Pain Level 0 02/27/2018 BP Systolic 120 mmHg BP Diastolic 78 mmHg Body Temperature 98.2 F Heart Rate 18 /min Respiratory Rate 16 /min Weight 147.00 lb O2 % BldC Oximetry 98 % Pain Level 0 02/24/2018 BP Systolic 128 mmHg BP Diastolic 75 mmHg Body Temperature 98.2 F Heart Rate 87 /min Respiratory Rate 16 /min Height 67 inches 5'7" Weight 148.12 lb BMI (Body Mass Index) 23.2 kg/m2 BSA (Body Surface Area) 1.78 m2 [place] body weight in kilograms 67 O2 % [...] kg/m2 BSA (Body Surface Area) 1.79 m2 [place] body weight in kilograms 67 O2 % BldC Oximetry 99 % Pain Level 0 12/31/2017 BP Systolic 131 mmHg BP Diastolic 81 mmHg Body Temperature 98.2 F Heart Rate 72 /min Respiratory Rate 16 /min Height 67 inches 5'7" Weight 152.00 lb BMI (Body Mass Index) 23.8 kg/m2 BSA (Body Surface Area) 1.80 m2 [place] body weight in kilograms 67 O2 % BldC Oximetry 99 % Pain Level 0 09/23/2017 BP Systolic Sitting Left Arm 98 mmHg Yuliana 97/60 BP Diastolic Sitting Left Arm 67 mmHg Yuliana 97/60 Heart Rate 81 /min Respiratory Rate 12 /min Height 67 inches 5'7" Weight 157.00 lb BMI (Body Mass Index) 24.6 kg/m2 BSA (Body Surface Area) 1.82 m2 [place] body weight in kilograms 67 03/27/2017 BP Systolic 117 mmHg BP Diastolic 73 mmHg Heart Rate 71 /min Respiratory Rate 12 /min Height 67 inches 5'7" Weight 154.25 lb BMI (Body Mass Index) 24.2 kg/m2 BSA (Body Surface Area) 1.81 m2 [place] body weight in kilograms 67 O2 % BldC Oximetry 97 % 11/22/2016 BP Systolic Sitting Left Arm 128 mmHg BP Diastolic Sitting Left Arm 72 mmHg Body Temperature 98.0 F Heart Rate 76 /min Respiratory Rate 14 /min Height 67 inches 5'7" Weight 152.38 lb BMI (Body Mass Index) 23.9 kg/m2 BSA (Body Surface Area) 1.80 m2 [place] body weight in kilograms 67 O2 % BldC Oximetry 98 % 10/10/2016 BP Systolic 121 mmHg BP Diastolic 71 mmHg Heart Rate 70 /min Respiratory Rate 12 /min Height 67 inches 5'7" Weight 153.00 lb With Shoes BMI (Body Mass Index) 24.0 kg/m2 BSA (Body Surface Area) 1.80 m2 [place] body weight in kilograms 67 O2 % [...] Test Date Test Result H/L Range Note Urine Dipstick 03/11/2018 Ua Color yellow Yellow Ua Clarity clear Clear Ua Leuko 70 High Negative Ua Nitrite neg Negative Ua Urobilinogen 3.5 High 0.2 - 1.0 E.U./dL Ua Protein 0.15 High Negative Ua PH 6.0 Low 6.5-7.5 Ua Blood 200 High Negative Ua Specific [place]k 1.015 1.010-1.030 Ua Ketones neg Negative Ua Bilirubin neg Negative Ua Glucose 15 High Negative Urine Culture 02/27/2018 Urine Culture NO GROWTH: FINAL <SEE NOTE> 1, 2 Urine Dipstick 02/27/2018 Ua Color blood tinged Yellow Ua Clarity cloudy Clear Ua Leuko 125 High Negative Ua Nitrite neg Negative Ua Urobilinogen 3.5 High 0.2 - 1.0 E.U./dL Ua Protein 1.0 High Negative Ua PH 6.0 Low 6.5-7.5 Ua Blood 200 High Negative Ua Specific [place]k 1.015 1.010-1.030 Ua Ketones neg Negative Ua Bilirubin neg Negative Ua Glucose neg Negative CBC W/Automated Diff 02/20/2018 White Blood Count 7.5 K/uL 3.4-10.5 3 Red Blood Count 3.99 M/uL Low 4.20-5.80 3 Hemoglobin 12.2 gm/dL Low 12.8-17.0 3 Hematocrit 34.9 % Low 38.0-48.0 3 Mean Cell Volume 87.5 fl 80.0-96.0 3 Mean Corpuscular HGB 30.6 pg 27.0-33.0 3 Mean Corpuscular HGB Conc 35.0 g/dL 31.7-36.0 3 Platelet Count 159 K/uL 155-360 3 Red Cell Distri Width SD 39.1 fl 36-51 3 Red Cell Distri Width %CV 12.8 % 11.6-15.8 3 Mean Platelet Volume 11.8 fL High 6.6-10.6 3 Neut% 75.2 % High 33.0-73.0 3 Lymph % 17.4 % Low 20.0-42.0 3 [place]ison % 6.6 % 0.0-10.0 3 Eo% 0.7 % 0.0-6.6 3 Bas% 0.1 % 0.0-1.1 3 Neut# 5.66 K/uL 1.8-7.0 3 Lymph # 1.31 K/uL 1.0-4.0 3 Davison # 0.50 K/uL 0.0-0.8 3 Eos # 0.05 K/uL 0.0-0.5 3 Baso # 0.01 K/uL 0.0-0.1 3 Basic Metabolic Panel 02/20/2018 Glucose 94 mg/dL 74-106 3 BUN 11 mg/dL 7-18 3 Creatinine 1.0 mg/dL 0.6-1.3 3 Glom Filtration Rate, Estimate >60 mL/min >60 3 If >60 mL/min >60 3, 4 BUN/Creat 11.0 ratio 3 Sodium 143 mmol/L 136-145 3 Potassium 4.1 mmol/L 3.5-5.1 3 Chloride 108 mmol/L High 98-107 3 Carbon Dioxide 30 mmol/L 21-32 3 Anion Gap 5 mEq/L Low 8-16 3 Calcium 8.1 mg/dL Low 8.5-10.1 3 Laboratory test finding 12/31/2017 Prostate Specific 3.93 ng/mL < 4.0 5 , 6 Antigen Comprehensive Metabolic 09/18/2017 Glucose 104 mg/dL 74-106 7 Panel BUN 13 mg/dL 7-18 7 Creatinine 1.0 mg/dL 0.6-1.3 7 Glom Filtration Rate, Estimate >60 mL/min >60 7 If >60 mL/min >60 7, 8 BUN/Creat 13.0 ratio 7 Sodium 144 mmol/L 136-145 7 Potassium 3.9 mmol/L 3.5-5.1 7 Chloride 111 mmol/L High 98-107 7 Carbon Dioxide 28 mmol/L 21-32 7 Anion Gap 5 mEq/L Low 8-16 7 Calcium 8.3 mg/dL Low 8.5-10.1 7 Total Protein 6.6 g/dL 6.4-8.2 7 Albumin 3.4 g/dL 3.4-5.0 7 Globulin 3.2 g/dL 1.9-4.3 7 Alb/Glob 1.1 ratio 7 Bilirubin,Total 0.4 mg/dL 0.2-1.0 7 Sgot/Ast 19 U/L 15-37 7 SGPT/Alt 35 U/L 12-78 7 Alkaline Phosphatase 90 U/L 45-117 7 LDL Cholesterol Profile 09/18/2017 Cholesterol 139 mg/dL <200 7, 9 Triglycerides 151 mg/dL High <150 7, 10 HDL Cholesterol 43 mg/dL >40 7, 11 LDL-Cholesterol 66 mg/dL < 100 7, 12 Glycohemoglobin A1c 09/18/2017 Glycohemoglobin (A1c) 6.2 % 4.2-6.3 7, 13 eAG 131 mg/dL 7 CBS W/Automated Diff 09/18/2017 White Blood Count 5.4 K/uL 3.4-10.5 7 Red Blood Count 5.00 M/uL 4.20-5.80 7 Hemoglobin 15.2 gm/dL 12.8-17.0 7 Hematocrit 43.5 % 38.0-48.0 7 Mean Cell Volume 87.0 fl 80.0-96.0 7 Mean Corpuscular HGB 30.4 pg 27.0-33.0 7 Mean Corpuscular HGB Conc 34.9 g/dL 31.7-36.0 7 Platelet Count 179 K/uL 155-360 7 Red Cell Distri Width SD 42.3 fl 36-51 7 Red Cell Distri Width %CV 13.8 % 11.6-15.8 7 Mean Platelet Volume 11.7 fL High 6.6-10.6 7 Neut% 57.6 % 33.0-73.0 7 Lymph % 31.5 % 20.0-42.0 7 [place] % 8.3 % 0.0-10.0 7 Eo% 2.0 % 0.0-6.6 7 Bas% 0.6 % 0.0-1.1 7 Neut# 3.12 K/uL 1.8-7.0 7 Lymph # 1.71 K/uL 1.0-4.0 7 [place] # 0.45 K/uL 0.0-0.8 7 Eos # 0.11 K/uL 0.0-0.5 7 Baso # 0.03 K/uL 0.0-0.1 7 Comprehensive Metabolic Panel 03/20/2017 Glucose 93 mg/dL 74-106 14 BUN 11 mg/dL 7-18 14 Creatinine 1.0 mg/dL 0.6-1.3 14 Glom Filtration Rate, Estimate >60 mL/min >60 14 If >60 mL/min >60 14, 15 BUN/Creat 11.0 ratio 14 Sodium 143 mmol/L 136-145 14 Potassium 4.3 mmol/L 3.5-5.1 14 Chloride 108 mmol/L High 98-107 14 Carbon Dioxide 30 mmol/L 21-32 14 Anion Gap 5 mEq/L Low 8-16 14 Calcium 8.8 mg/dL 8.5-10.1 14 Total Protein 7.0 g/dL 6.4-8.2 14 Albumin 3.7 g/dL 3.4-5.0 14 Globulin 3.3 g/dL 1.9-4.3 14 Alb/Glob 1.1 ratio 14 Bilirubin,Total 0.4 mg/dL 0.2-1.0 14 Sgot/Ast 21 U/L 15-37 14 SGPT/Alt 35 U/L 12-78 14 Alkaline Phosphatase 102 U/L 45-117 14 LDL Cholesterol Profile 03/20/2017 Cholesterol 170 mg/dL <200 14, 16 Triglycerides 167 mg/dL High <150 14, 17 HDL Cholesterol 44 mg/dL >40 14, 18 LDL-Cholesterol 93 mg/dL < 100 14, 19 Glycohemoglobin A1c 03/20/2017 Glycohemoglobin (A1c) 5.9 % 4.2-6.3 14, 20 eAG 123 mg/dL 14 CBS W/Automated Diff 11/22/2016 White Blood Count 5.8 K/uL 3.4-10.5 21 Red Blood Count 4.92 M/uL 4.20-5.80 21 Hemoglobin 14.9 gm/dL 12.8-17.0 21 Hematocrit 42.5 % 38.0-48.0 21 Mean Cell Volume 86.4 fl 80.0-96.0 21 Mean Corpuscular HGB 30.3 pg 27.0-33.0 21 Mean Corpuscular HGB Conc 35.1 g/dL 31.7-36.0 21 Platelet Count 202 K/uL 150-400 21 Red Cell Distri Width SD 41.5 fl 36-51 21 Red Cell Distri Width %CV 13.7 % 11.6-15.8 21 Mean Platelet Volume 12.5 fL High 6.6-10.6 21 Neut% 78.7 % High 33.0-73.0 21 Lymph % 14.0 % Low 20.0-42.0 21 [place]ison % 6.5 % 0.0-10.0 21 Eo% 0.5 % 0.0-6.6 21 Bas% 0.3 % 0.0-1.1 21 Neut# 4.59 K/uL 1.8-7.0 21 Lymph # 0.82 K/uL Low 1.0-4.0 21 Davison # 0.38 K/uL 0.0-0.8 21 Eos # 0.03 K/uL 0.0-0.5 21 Baso # 0.02 K/uL 0.0-0.1 21 Laboratory test 11/22/2016 [place] Screen NEGATIVE Negative 21, 22 finding (Heterophile) CBS W/Automated Diff 10/03/2016 White Blood Count 5.2 K/uL 3.4-10.5 23 Red Blood Count 5.03 M/uL 4.20-5.80 23 Hemoglobin 14.9 gm/dL 12.8-17.0 23 Hematocrit 42.5 % 38.0-48.0 23 Mean Cell Volume 84.5 fl 80.0-96.0 23 Mean Corpuscular HGB 29.6 pg 27.0-33.0 23 Mean Corpuscular HGB Conc 35.1 g/dL 31.7-36.0 23 Platelet Count 164 K/uL 150-400 23 Red Cell Distri Width SD 40.6 fl 36-51 23 Red Cell Distri Width %CV 13.5 % 11.6-15.8 23 Mean Platelet Volume 11.7 fL High 6.6-10.6 23 Neut% 69.4 % 33.0-73.0 23 Lymph % 22.5 % 20.0-42.0 23 [place] % 6.3 % 0.0-10.0 23 Eo% 1.2 % 0.0-6.6 23 Bas% 0.6 % 0.0-1.1 23 Neut# 3.62 K/uL 1.8-7.0 23 Lymph # 1.17 K/uL 1.0-4.0 23 [place] # 0.33 K/uL 0.0-0.8 23 Eos # 0.06 K/uL 0.0-0.5 23 Baso # 0.03 K/uL 0.0-0.1 23 LDL Cholesterol Profile 10/03/2016 Cholesterol 134 mg/dL <200 23, 24 Triglycerides 114 mg/dL <150 23, 25 HDL Cholesterol 36 mg/dL Low >40 23, 26 LDL-Cholesterol 75 mg/dL < 100 23, 27 Glycohemoglobin A1c 10/03/2016 Glycohemoglobin (A1c) 5.9 % 4.2-6.3 23, 28 eAG 123 mg/dL 23 Comprehensive Metabolic Panel 10/03/2016 Glucose 103 mg/dL 74-106 23 BUN 12 mg/dL 7-18 23 Creatinine 1.1 mg/dL 0.6-1.3 23 Glom Filtration Rate, Estimate >60 mL/min >60 23 If >60 mL/min >60 23, 29 BUN/Creat 10.9 ratio 23 Sodium 146 mmol/L High 136-145 23 Potassium 4.0 mmol/L 3.5-5.1 23 Chloride 109 mmol/L High 98-107 23 Carbon Dioxide 33 mmol/L High 21-32 23 Anion Gap 4 mEq/L Low 8-16 23 Calcium 8.5 mg/dL 8.5-10.1 23 Total Protein 6.5 g/dL 6.4-8.2 23 Albumin 3.5 g/dL 3.4-5.0 23 Globulin 3.0 g/dL 1.9-4.3 23 Alb/Glob 1.2 ratio 23 Bilirubin,Total 0.4 mg/dL 0.2-1.0 23 Sgot/Ast 19 U/L 15-37 23 SGPT/Alt 36 U/L 12-78 23 Alkaline Phosphatase 83 U/L 45-117 23 Comprehensive Metabolic Panel 03/30/2016 Glucose 108 mg/dL High 74-106 30 BUN 10 mg/dL 7-18 30 Creatinine 1.1 mg/dL 0.6-1.3 30 Glom Filtration Rate, Estimate >60 mL/min >60 30 If >60 mL/min >60 30, 31 BUN/Creat 9.0 ratio 30 Sodium 142 mmol/L 136-145 30 Potassium 4.0 mmol/L 3.5-5.1 30 Chloride 106 mmol/L 98-107 30 Carbon Dioxide 32 mmol/L 21-32 30 Anion Gap 4 mEq/L Low 8-16 30 Calcium 8.6 mg/dL 8.5-10.1 30 Total Protein 7.0 g/dL 6.4-8.2 30 Albumin 3.7 g/dL 3.4-5.0 30 Globulin 3.3 g/dL 1.9-4.3 30 Alb/Glob 1.1 ratio 30 Bilirubin,Total 0.5 mg/dL 0.2-1.0 30 Sgot/Ast 16 U/L 15-37 30 SGPT/Alt 35 U/L 12-78 30 Alkaline Phosphatase 94 U/L 45-117 30 CBC W/Automated Diff 03/30/2016 White Blood Count 6.1 K/uL 3.4-10.5 30 Red Blood Count 5.09 M/uL 4.20-5.80 30 Hemoglobin 15.5 gm/dL 12.8-17.0 30 Hematocrit 44.5 % 38.0-48.0 30 Mean Cell Volume 87.4 fl 80.0-96.0 30 Mean Corpuscular HGB 30.5 pg 27.0-33.0 30 Mean Corpuscular HGB Conc 34.8 g/dL 31.7-36.0 30 Platelet Count 172 K/uL 150-400 30 Red Cell Distri Width SD 41.5 fl 36-51 30 Red Cell Distri Width %CV 13.2 % 11.6-15.8 30 Mean Platelet Volume 11.4 fL High 6.6-10.6 30 Neut% 71.9 % 33.0-73.0 30 Lymph % 19.9 % 17.0-56.0 30 Davison % 6.2 % 0.0-10.0 30 Eo% 1.5 % 0.0-5.0 30 Bas% 0.5 % 0.1-1.0 30 Neut# 4.38 K/uL 1.8-7.0 30 Lymph # 1.21 K/uL Low 1.8-7.0 30 Davison # 0.38 K/uL 0.0-0.8 30 Eos # 0.09 K/uL 0.0-0.5 30 Baso # 0.03 K/uL Low 0.1-0.2 30 LDL Cholesterol Profile 03/30/2016 Cholesterol 159 mg/dL <200 30, 32 Triglycerides 140 mg/dL <150 30, 33 HDL Cholesterol 52 mg/dL >40 30, 34 LDL-Cholesterol 79 mg/dL < 100 30, 35 Glycohemoglobin A1c 03/30/2016 Glycohemoglobin (A1c) 5.9 % 4.2-6.3 30, 36 eAG 123 mg/dL 30 Laboratory test 03/30/2016 Vitamin D,25-Hydroxy 37.6 ng/mL 30.0-100.0 30 , 37 finding Comprehensive 08/04/2015 Glucose 94 mg/dL 74-106 Metabolic Panel BUN 14 mg/dL 7-18 Creatinine 1.1 mg/dL 0.6-1.3 Glom Filtration Rate, Estimate >60 mL/min >60 If >60 mL/min >60 38 BUN/Creat 12.7 ratio Sodium 141 mmol/L 136-145 [...] % 33.0-73.0 Lymph % 21.8 % 17.0-56.0 Davison % 6.1 % 0.0-10.0 Eo% 0.9 % 0.0-5.0 Bas% 0.6 % 0.1-1.0 Neut# 3.79 K/uL 1.8-7.0 Lymph # 1.17 K/uL Low 1.8-7.0 Davison # 0.33 K/uL 0.0-0.8 Eos # 0.05 K/uL 0.0-0.5 Baso # 0.03 K/uL Low 0.1-0.2 LDL Cholesterol Profile 08/04/2015 Cholesterol 157 mg/dL <200 39 Triglycerides 155 mg/dL High <150 40 HDL Cholesterol 38 mg/dL Low >40 41 LDL-Cholesterol 88 mg/dL < 100 42 Vitamin B12 And Folate 08/04/2015 Vitamin B12 697 pg/mL 193-986 Folic Acid 26.7 ng/mL High 3.1-17.5 Laboratory test finding 08/04/2015 Vitamin D,25-Hydroxy 36.6 ng/mL 30.0- 100.0 43 Glycohemoglobin A1c 08/04/2015 Glycohemoglobin (A1c) 5.6 % 4.2-6.3 44 eAG 114 mg/dL 1 N39.0 2 NO GROWTH: FINAL REPORT 3 CONSULT 02/14/18 10;30 4 Note: Persistent reduction for 3 months or more in an eGFR <60 mL/min/1.73 m2 defines CKD. Patients with eGFR values >/=60 mL/min/1.73 m2 may also have CKD if evidence of persistent proteinuria is present. The original MDRD equation for estimated GFR is not valid for patients less than 18 years of age. Additional information may be found at www.[email or web address]. 5 Z12.5 6 THIS ASSAY IS NOT INTENDED A CANCER SCREENING TEST The concentration of PSA in a given specimen, determined with assays from different manufacturers, can vary due to differences in assay methods and reagent specificity. Values obtained from different assay methods cannot be used interchangeably. Method: Siemens [employer] Chemiluminescent immunoassay. 7 E78.5,R73.9,I10 8 Note: Persistent reduction for 3 months or more in an eGFR <60 mL/min/1.73 m2 defines CKD. Patients with eGFR values >/=60 mL/min/1.73 m2 may also have CKD if evidence of persistent proteinuria is present. The original MDRD equation for estimated GFR is not valid for patients less than 18 years of age. Additional information may be found at www.kdoqi.org. 9 Reference Guidelines*: Desirable: ........... < 200 mg/dL Borderline High: ..... 200-239 mg/dL High: ................ >=240 mg/dL * The National Cholesterol Education Program (NCEP) 10 Reference Guidelines*: Normal: ............. < 150 mg/dL Borderline High: .... 150-199 mg/dL High: ............... 200-499 mg/dL Very High: .......... > 500 mg/dL * Source: National Cholesterol Education Program (NCEP) 11 Reference Guidelines*: Low HDL: ..... < 40 mg/dL Normal: ..... 40-60 mg/dL Desirable: ... > 60 mg/dL *The National Cholesterol Education Program(NCEP) 12 Reference Guidelines*: Optimal:........... <100 mg/dL Near Optimal....... 100-129 mg/dL Borderline High.... 130-159 mg/dL High............... 160-189 mg/dL Very High.......... >=190 mg/dL * Source: National Cholesterol Education Program (NCEP) 13 Elevated levels of HbA1c suggest the need for more aggressive treatment of glycemia. The [place] [employer] recommends that a primary goal of therapy should be a HbA1c of <7% and that physicians should re-evaluate the treatment regimen in patients with HbA1c values consistently >8%. 14 E78.5, E73.9 15 Note: Persistent reduction for 3 months or more in an eGFR <60 mL/min/1.73 m2 defines CKD. Patients with eGFR values >/=60 mL/min/1.73 m2 may also have CKD if evidence of persistent proteinuria is present. The original MDRD equation for estimated GFR is not valid for patients less than 18 years of age. Additional information may be found at www.kdoqi.org. 16 Reference Guidelines*: Desirable: ........... < 200 mg/dL Borderline High: ..... 200-239 mg/dL High: ................ >=240 mg/dL * The National Cholesterol Education Program (NCEP) 17 Reference Guidelines*: Normal: ............. < 150 mg/dL Borderline High: .... 150-199 mg/dL High: ............... 200-499 mg/dL Very High: .......... > 500 mg/dL * Source: National Cholesterol Education Program (NCEP) 18 Reference Guidelines*: Low HDL: ..... < 40 mg/dL Normal: ..... 40-60 mg/dL Desirable: ... > 60 mg/dL *The National Cholesterol Education Program(NCEP) 19 Reference Guidelines*: Optimal:........... <100 mg/dL Near Optimal....... 100-129 mg/dL Borderline High.... 130-159 mg/dL High............... 160-189 mg/dL Very High.......... >=190 mg/dL * Source: National Cholesterol Education Program (NCEP) 20 Elevated levels of HbA1c suggest the need for more aggressive treatment of glycemia. The [place] [employer] recommends that a primary goal of therapy should be a HbA1c of <7% and that physicians should re-evaluate the treatment regimen in patients with HbA1c values consistently >8%. 21 R13.10 22 METHOD: Davison II Rapid Immunochromatographic assay [facility] 23 E78.5,G62.9 24 Reference Guidelines*: Desirable: ........... < 200 mg/dL Borderline High: ..... 200-239 mg/dL High: ................ >=240 mg/dL * The National Cholesterol Education Program (NCEP) 25 Reference Guidelines*: Normal: ............. < 150 mg/dL Borderline High: .... 150-199 mg/dL High: ............... 200-499 mg/dL Very High: .......... > 500 mg/dL * Source: National Cholesterol Education Program (NCEP) 26 Reference Guidelines*: Low HDL: ..... < 40 mg/dL Normal: ..... 40-60 mg/dL Desirable: ... > 60 mg/dL *The National Cholesterol Education Program(NCEP) 27 Reference Guidelines*: Optimal:........... <100 mg/dL Near Optimal....... 100-129 mg/dL Borderline High.... 130-159 mg/dL High............... 160-189 mg/dL Very High.......... >=190 mg/dL * Source: National Cholesterol Education Program (NCEP) 28 Elevated levels of HbA1c suggest the need for more aggressive treatment of glycemia. The [place] [employer] recommends that a primary goal of therapy should be a HbA1c of <7% and that physicians should re-evaluate the treatment regimen in patients with HbA1c values consistently >8%. 29 Note: Persistent reduction for 3 months or more in an eGFR <60 mL/min/1.73 m2 defines CKD. Patients with eGFR values >/=60 mL/min/1.73 m2 may also have CKD if evidence of persistent proteinuria is present. The original MDRD equation for estimated GFR is not valid for patients less than 18 years of age. Additional information may be found at www.kdoqi.org. 30 I25.10 E78.5 I10 M67.949 31 Note: Persistent reduction for 3 months or more in an eGFR <60 mL/min/1.73 m2 defines CKD. Patients with eGFR values >/=60 mL/min/1.73 m2 may also have CKD if evidence of persistent proteinuria is present. The original MDRD equation for estimated GFR is not valid for patients less than 18 years of age. Additional information may be found at www.kdoqi.org. 32 Reference Guidelines*: Desirable: ........... < 200 mg/dL Borderline High: ..... 200-239 mg/dL High: ................ >=240 mg/dL * The National Cholesterol Education Program (NCEP) 33 Reference Guidelines*: Normal: ............. < 150 mg/dL Borderline High: .... 150-199 mg/dL High: ............... 200-499 mg/dL Very High: .......... > 500 mg/dL * Source: National Cholesterol Education Program (NCEP) 34 Reference Guidelines*: Low HDL: ..... < 40 mg/dL Normal: ..... 40-60 mg/dL Desirable: ... > 60 mg/dL *The National Cholesterol Education Program(NCEP) 35 Reference Guidelines*: Optimal:........... <100 mg/dL Near Optimal....... 100-129 mg/dL Borderline High.... 130-159 mg/dL High............... 160-189 mg/dL Very High.......... >=190 mg/dL * Source: National Cholesterol Education Program (NCEP) 36 Elevated levels of HbA1c suggest the need for more aggressive treatment of glycemia. The [place] Diabetes Association recommends that a primary goal of therapy should be a HbA1c of <7% and that physicians should re-evaluate the treatment regimen in patients with HbA1c values consistently >8%. 37 Vitamin D deficiency has been defined by the [place] [employer] and an Endocrine Society practice guideline as a level of serum 25-OH vitamin D less than 20 ng/mL (1,2). The Endocrine Society went on to further define vitamin D insufficiency as a level between 21 and 29 ng/mL (2). 1. IOM ([place] [employer]). 2010. Dietary reference intakes for calcium and D. [place]: The National [employer]. 2. Francesco MF, Sera NC, Usman BAPTISTE, et al. Evaluation, treatment, and prevention of vitamin D deficiency: an Endocrine Society clinical practice guideline. JCEM. 2010; 96(7):1911-30. Performed at: RN - [facility] [address] [id number] Maintenance Tech: Yessy Whitfield MD, Phone: [phone] Note: Persistent reduction for 3 months or more in an eGFR <60 mL/min/1.73 m2 defines CKD. Patients with eGFR values >/=60 mL/min/1.73 m2 may also have CKD if evidence of persistent proteinuria is present. The original MDRD equation for estimated GFR is not valid for patients less than 18 years of age. Additional information may be found at www.kdoqi.org. 39 Reference Guidelines*: Desirable: ........... < 200 mg/dL Borderline High: ..... 200-239 mg/dL High: ................ >=240 mg/dL * The National Cholesterol Education Program (NCEP) 40 Reference Guidelines*: Normal: ............. < 150 mg/dL Borderline High: .... 150-199 mg/dL High: ............... 200-499 mg/dL Very High: .......... > 500 mg/dL * Source: National Cholesterol Education Program (NCEP) 41 Reference Guidelines*: Low HDL: ..... < 40 mg/dL Normal: ..... 40-60 mg/dL Desirable: ... > 60 mg/dL *The National Cholesterol Education Program(NCEP) 42 Reference Guidelines*: Optimal:........... <100 mg/dL Near Optimal....... 100-129 mg/dL Borderline High.... 130-159 mg/dL High............... 160-189 mg/dL Very High.......... >=190 mg/dL * Source: National Cholesterol Education Program (NCEP) 43 Vitamin D deficiency has been defined by the [place] [employer] and an Endocrine Society practice guideline as a level of serum 25-OH vitamin D less than 20 ng/mL (1,2). The Endocrine Society went on to further define vitamin D insufficiency as a level between 21 and 29 ng/mL (2). 1. IOM ([place] [employer]). 2010. Dietary reference intakes for calcium and D. [place]: The National Academies Press. 2. Francesco MF, Sera KRISHNAMURTHY, Usman BAPTISTE, et al. Evaluation, treatment, and prevention of vitamin D deficiency: an Endocrine Society clinical practice guideline. JCEM. 2010; 96(2):1911-30. Performed at: RN - [facility] [address] [id number] Maintenance Tech: Yessy Whitfield MD, Phone: [phone] Elevated levels of HbA1c suggest the need for more aggressive treatment of glycemia. The [place] Diabetes Association recommends that a primary goal of therapy should be a HbA1c of <7% and that physicians should re-evaluate the treatment regimen in patients with HbA1c values consistently >8%. Procedures Date CPT Code Description Status Comment 03/11/2018 91414 Measurement Post Voiding Completed Residual Urine By Ultrasound,Non-Imaging 03/11/2018 99672 complex uroflowmetry Completed electronic 02/27/2018 05319 Measurement Post Voiding Completed Residual Urine By Ultrasound,Non-Imaging 02/27/2018 65123 complex uroflowmetry Completed electronic 02/24/2018 71815 Irrigation Of Bladder Completed 02/21/2018 41264 Irrigation Of Bladder Completed 02/19/2018 77581 Transurethral electrosurgical Completed resection of prostate 01/10/2018 74771 Cystoscopy Completed 12/27/[address] Horton performed colonoscopy due in 5 years 11/13/2007 96994 Stress Test Interpre And Completed Report Only 11/13/2007 25127 Stress Test Physician Super Completed Only 07/31/2007 82198 Stress Test Interpre And Completed Report Only 07/31/2007 31362 Stress Test Physician Super Completed Only Encounters Type Date Location Provider CPT E/M Dx Office Visit 02/21/2018 1:35p Urology Vira Conteh M.D. 10652 N40.1 Office Visit 01/10/2018 10:15a Urology Vira Conteh M.D. 51913 N40.1 Office Visit 12/31/2017 9:00a Urology Vira Conteh M.D. 45190 Z12.5 N40.1 Office Visit 09/23/2017 2:20p [place] [address] I10 E78.5 R73.9 J30.9 Office Visit 03/27/2017 10:00a [place] [address] E78.5 I10 R73.9 M67.949 Office Visit 11/22/2016 8:40a Primary Care Office Rajinder Bañuelos M.D. 76511 R13.10 R05 E78.5 I10 Office Visit 10/10/2016 9:40a [place] [address] I10 E78.5 R73.9 Office Visit 04/06/2016 9:20a [place] [address] E78.5 I25.10 I10 G62.9 N40.0 Z23 Office Visit 11/02/2015 8:40a [place] [address] I25.10 E78.5 I10 G62.9 N40.0 M67.949 Office Visit 10/12/2015 10:00a Physical Medicine & [place] [address] G62.9 Infectious Disease Office Visit 09/07/2015 10:30a Physical Medicine & [place] [address] G62.9 Infectious Disease Office Visit 08/03/2015 11:00a [place] [address] I25.10 I10 E78.5 N40.0 M72.2 M67.949 Plan of Care Future Appointment(s):07/08/2018 9:45 am - Vira Conteh M.D. at N[facility]gexsp3106/2018 10:20 am - Sade Storey MD at [facility] Kwgtws4604/01/2018 10:00 am - Dari Zimmerman MS, ASSISTANT PROFESSOR OF COMMUNICATION-C, CNM at [facility] Uahvdi2303/11/2018 - Vira Conteh M.D.N40.1 Benign prostatic hyperplasia with lower urinary tract sympComments:s/p TURP, patient had some urinary symptoms postoperatively that are improving. I told the patient he needs to continue with his doxazosin but he could stop the dutasteride. Patient follow-up with mein 2-3 months for uroflow and PVR
[2018-03-23 07:30] VITALS: BP 126/67
[2018-03-23] MEDS ORDERED: Meclizine TAB* 12.5 MG PO ONE (07:34)
--- NOTE | 2018-03-23 07:41 | ED ---
Dizziness - HPI Summary HPI Summary: pt presents to the today for evaluation of his left ear. He states that he feels like his left ear is full. he further stated that he had 2 episodes of dizziness this am. his first dizzy episode was at 01:30 and then later this am. he states he did drink 3 beers last night which is not unusual. he further stated that he had mild nausea as well without any emesis. he then was concerned that perhaps the flexible plastic piece of his hearing aid was stuck in his left ear causing these symptoms. he denies any fever or chills. - History Of Current Complaint Chief Complaint: UCEar Stated Complaint: LEFT EAR COMPLAINT Hx Obtained From: Patient, Family/Director Of Corporate Sales Onset/Duration: Resolved Timing: Intermittent Episode Lasting Severity Initially: Mild Severity Currently: None Aggravating Factor(s): Nothing Alleviating Factor(s): Nothing Associated Signs And Symptoms: Positive: Nausea. Negative: Vomiting, Diarrhea, Tinnitus, Chest Pain, SOB, Palpitations, Unsteady Gait, Visual Changes, Fever, Chills - Allergies/Home Medications Allergies/Adverse Reactions: Allergies Allergy/AdvReac Type Severity Reaction Status Date / Time esomeprazole [From Nexium] Allergy Unknown Verified 03/23/18 07:30 Reaction Details PMH/Surg Hx/FS Hx/Imm Hx Previously Healthy: Yes Cardiovascular History: Reports: Hx Hypertension - Surgical History Surgery Procedure, Year, and Place: [facility] 02/19/18, [facility]; Coronary arteries stented 2007; appy 1967,deviated nasal septum 1986, left hernia 2005 Infectious Disease History: No Infectious Disease History: Denies: Traveled Outside the [place] in Last 30 Days - Social History Alcohol Use: Occasionally Substance Use Type: Reports: None Smoking Status (MU): Never Smoked Tobacco Review of Systems Constitutional: Negative Eyes: Negative Positive: Other - ear fullness left Respiratory: Negative Gastrointestinal: Negative Genitourinary: Negative Musculoskeletal: Negative Skin: Negative Negative: Headache, Numbness, Syncope, Slurred Speech Psychological: Normal All Other Systems Reviewed And Are Negative: No Physical Exam Triage Information Reviewed: Yes Vital Signs On Initial Exam: Initial Vitals Temp Pulse Resp BP Pulse Ox 96.8 F 62 14 126/67 100 03/23/18 07:17 03/23/18 07:17 03/23/18 07:17 03/23/18 07:17 03/23/18 07:17 Vital Signs Reviewed: Yes Appearance: Positive: Well-Appearing, No Pain Distress, Well-Nourished Skin: Positive: Warm Head/Face: Positive: Normal Head/Face Inspection Eyes: Positive: Normal, EOMI, JOSEFA ENT: Positive: Normal ENT inspection, Hearing grossly normal, Pharynx normal, Other - no foreign body noted in left ear Neck: Positive: Supple, Nontender, No Lymphadenopathy. Negative: Nuchal Rigidity Respiratory/Lung Sounds: Positive: Clear to Auscultation, Breath Sounds Present , Decreased Breath Sounds Cardiovascular: Positive: Normal, RRR Abdomen Description: Positive: Nontender, Soft Bowel Sounds: Positive: Present Musculoskeletal: Positive: Normal, Strength/ROM Intact Neurological: Positive: Normal, Sensory/Motor Intact, Alert, Oriented to Person Place, Time, CN Intact II-III Psychiatric: Positive: Normal AVPU Assessment: Alert Diagnostics - Vital Signs Vital Signs Temp Pulse Resp BP Pulse Ox 03/23/18 07:17 96.8 F 62 14 126/67 100 - Laboratory Lab Statement: Any lab studies that have been ordered have been reviewed, and results considered in the medical decision making process. Dizzy Course/Dx - Course Course Of Treatment: pt's exam is benign. I gave pt first dose of meclizine in the UC. I also wrote a rx for meclizine. I encouraged pt to go to the ED if his symptoms. worsen and to f/u with pcp this coming week. - Diagnoses Provider Diagnoses: Vertigo Discharge - Sign-Out/Discharge Documenting (check all that apply): Patient Departure All imaging exams completed and their final reports reviewed: No Studies - Discharge Plan Condition: Stable Disposition: HOME Prescriptions: Meclizine TAB* [Antivert 12.5 TAB*] 25 mg PO TID PRN #20 tab MDD 3 PRN Reason: Dizziness Patient Education Materials: Vertigo (ED) Referrals: Sade Storey MD [Primary Care Provider] - Additional Instructions: take the meclizine as instructed. return if worse or any new symptoms. It is important to follow up with your doctor this week. if your dizziness worsens, go to the closest emergency dept for further evaluation. - Billing Disposition and Condition Condition: STABLE Disposition: Home
== END 2018-03-23 07:50 | disposition home or self-care (01) ==
LOC: UCCORT 07:02
DX: R42 Dizziness and giddiness (principal)
CPT/HCPCS: 99202; A9270-GY; G0463